=== PATIENT | female | born 1965 | race Caucasian/White ===

== ENCOUNTER 2021-07-09 20:11 | Emergency (ER) | payer SELFPAY ==
[~2021-07-09] VITALS: Ht 160 cm; Wt 107.0 kg
[2021-07-09 20:47] VITALS: BP 150/96
[2021-07-09] MEDS ORDERED: OXYMETAZOLINE HCL 0.05% 15 ML NASAL SPRAY NASAL ONE (21:00)
== END 2021-07-09 23:57 | disposition home or self-care (01) ==
LOC: EMS 20:14
DX: R04.0 Epistaxis (principal)
CPT/HCPCS: 99282; Z7502; Z7610